=== PATIENT | female | born 2000 ===

== ENCOUNTER 2021-01-05 15:02 | Emergency (ER) | payer OTHER ==
[~2021-01-05] VITALS: Ht 165.1 cm; Wt 70.3 kg
[2021-01-05] MEDS ORDERED: IBUPROFEN 600 MG TAB PO ONE (19:30)
[2021-01-05 20:08] VITALS: BP 93/60
== END 2021-01-05 21:40 ==
LOC: EEVIPCON 15:02 → ER 15:02
DX: S93.401A Sprain of unspecified ligament of right ankle, initial encounter (principal); W17.89XA Other fall from one level to another, initial encounter; Y93.39 Activity, other involving climbing, rappelling and jumping off; Y92.89 Other specified places as the place of occurrence of the external cause; Y99.8 Other external cause status
CPT/HCPCS: 73610